=== PATIENT | male | born 1975 | race Caucasian/White ===

== ENCOUNTER → 2019-03-13 | Outpatient (CLI) | payer BC ==
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
== END | disposition home or self-care (01) ==
LOC: RADXRYALE 14:02
PROVIDERS: ATTEND Internal Medicine
DX: M25.521 Pain in right elbow (principal)

== ENCOUNTER → 2020-03-07 | Outpatient (CLI) | payer BC ==
--- NOTE | 2020-03-07 12:59 | MR ---
EXAMINATION TYPE: MR shoulder LT wo con DATE OF EXAM: 03/07/2020 COMPARISON: Radiograph 02/09/2020 HISTORY: 45-year-old male Left shoulder pain TECHNIQUE: Multiplanar, multisequence imaging of the left shoulder is performed without contrast. FINDINGS: The exam is degraded by patient motion especially on the coronal and sagittal T2 FS sequences. Limited assessment of the intracapsular portion of the long head biceps tendon. Slight medial subluxa tion of the tendon in the upper bicipital groove secondary to interstitial tearing of the subscapular is tendon. The majority of the subscapularis tendon appears intact. Severe degenerative change with joint space narrowing, marginal spurring, capsular hypertrophy at the clavicular joint. Anterior spurring just touches the myotendinous junction of the supraspinatus with out any significant mass effect. There is a small effusion within the subacromial/subdeltoid bursa. Diffuse heterogeneity of both supraspinatus and infraspinatus tendons. There is a significant tear me asuring 1 cm long and 1.4 cm AP involving the anterior to mid supraspinatus tendon. Most of this port ion of the tendon appears torn. A few scattered fibers may remain intact. No discrete tear of the infraspinatus tendon. No atrophy of the rotator cuff musculature. No glenohumeral joint effusion. There is suggestion of mild diffuse thinning of the glenohumeral join t articular cartilage. No discrete labral tear given nonarthrographic technique. No para labral cyst. No Hill-Sachs deformity or os acromiale. Patchy red marrow is present and can be seen in the setting of anemia, obesity, smoking, chronic dise ase. IMPRESSION: 1. Diffuse rotator cuff tendinosis. There is a full-thickness tear of the anterior to mid supraspinat us tendon measuring 1 cm long and 1.4 cm AP. Minimal scattered bursal and articular sided fibers may remain intact within the tear. No rotator cuff muscle atrophy. 2. Some attritional tearing of the subscapularis tendon. The majority of the subscapularis tendon rem ains intact. 3. Moderate to severe AC joint OA. There may be mild generalized articular cartilage thinning in the glenohumeral joint. Assessment is limited due to motion degradation.
== END | disposition home or self-care (01) ==
LOC: RADMRIMAIN 11:14
PROVIDERS: ATTEND Orthopaedic Surgery
DX: M19.012 Primary osteoarthritis, left shoulder (principal); M75.102 Unspecified rotator cuff tear or rupture of left shoulder, not specified as traumatic

== ENCOUNTER → 2020-03-23 | Outpatient (CLI) | payer BC | END | disposition home or self-care (01) | LOC: LABWHC1 16:08 | PROVIDERS: ATTEND Nurse Practitioner Gerontology | DX: R05 Cough (principal) | CPT/HCPCS: U0003; C9803 ==

== ENCOUNTER 2020-04-11 08:16 | Day surgery (SDC) | payer BC ==
[2020-04-08 11:46] VITALS: BMI 29.0
--- NOTE | 2020-04-10 16:04 | HP ---
HISTORY AND PHYSICAL REASON FOR ADMISSION: Surgery 04/11/2020 HISTORY OF PRESENT ILLNESS: Kevin Hawkins is a 45-year-old gentleman seen with progressive left shoulder pain. We discussed options for treatment. He elected to proceed with arthroscopy. Consent regarding the procedure was obtained. PAST MEDICAL HISTORY: Gastroesophageal reflux disease. PAST SURGICAL HISTORY: Right shoulder arthroscopy. MEDICATIONS: Omeprazole, tramadol. ALLERGIES: None. SOCIAL HISTORY: Denies tobacco use. PHYSICAL EVALUATION OF THE LEFT SHOULDER: Flexion is 100 degrees, abduction is 90 degrees, external rotation 60 degrees with weakness. There is tenderness along the anterolateral acromion rotator cuff insertion site. Impingement positive at 90. Drop-arm positive. Distal neurovascular exam intact. RADIOGRAPHS: Radiographs of the left shoulder revealed a type 2 anterior acromion, acromioclavicular joint osteoarthritis and cystic changes of the greater tuberosity. Left shoulder MRI revealed rotator cuff tendon tear and AC joint osteoarthritis. IMPRESSION: 1. Left shoulder impingement with rotator cuff tear. 2. Left shoulder acromioclavicular joint osteoarthritis. 3. Chronic opioid use. PLAN: Left shoulder arthroscopy, subacromial decompression, arthroscopic rotator cuff repair, Lore procedure and debridement. Surgery 04/11/2020. MMODL / IJN: [id number] /
[~2020-04-11 08:16] MED LIST: DEXAMETHASONE SOD PHOSPHATE 4 MG/ML 1 ML VIAL IV ONE; LIDOCAINE 1% (10MG/ML) FOR IV START INTRADERMA PRN; MIDAZOLAM 2 MG/2 ML VIAL IV PRN; ONDANSETRON 4 MG/2 ML VIAL IVP ONE
[2020-04-11] MEDS: LACTATED RINGERS 1,000 ML IV SCH ×2 (08:55→10:02)
[2020-04-11 09:03] LABS: Basophils # (A) 0.1 k/uL (0-0.2); Basophils % (A) 1 %; Eosinophils # (A) 0.2 k/uL (0-0.7); Eosinophils % (A) 2 %; HCT 49.2 % (39.0-53.0); HGB 17.2 gm/dL (13.0-17.5); Lymphocytes # (A) 2.1 k/uL (1.0-4.8); Lymphocytes % (A) 24 %; MCH 30.9 pg (25.0-35.0); MCV 88.1 fL (80.0-100.0); Mean Platelet Volume 6.8; Monocytes # (A) 0.4 k/uL (0-1.0); Monocytes % (A) 5 %; Neutrophils % (A) 67 %; Platelet Count 310 k/uL (150-450); RBC 5.58 m/uL (4.30-5.90); RDW 12.6 % (11.5-15.5); WBC 8.9 k/uL (3.8-10.6)
[2020-04-11 09:11] LABS: Potassium 4.3 mmol/L (3.5-5.1)
[2020-04-11] MEDS ORDERED: SUCCINYLCHOLINE CHLORIDE 100 MG/5 ML SYR IV ONE (09:58)
[2020-04-11] MEDS ORDERED: HYDROmorphone (PF) 1 MG/ML ONE (09:58)
[2020-04-11] MEDS ORDERED: GLYCOPYRROLATE 0.2 MG/ML 2 ML VIAL ONE (09:58)
[2020-04-11] MEDS ORDERED: MIDAZOLAM 2 MG/2 ML VIAL ONE (09:58)
[2020-04-11] MEDS ORDERED: PROPOFOL 10 MG/ML 20 ML VIAL IV ONE (09:58)
[2020-04-11] MEDS ORDERED: LIDOCAINE 1% INJ 10MG/ML (20 ML MDV) ONE (09:58)
[2020-04-11] MEDS ORDERED: fentaNYL (PF) 50 MCG/ML 2 ML AMP ONE (09:58)
[2020-04-11] MEDS ORDERED: NEOSTIGMINE 1 MG/ML 10 ML VIAL ONE (09:58)
[2020-04-11] MEDS ORDERED: ROCURONIUM 10 MG/ML (10 ML VIAL) IV ONE (09:58)
--- NOTE | 2020-04-11 11:38 | P.OP ---
Date of Procedure: 04/11/20 Preoperative Diagnosis: Left shoulder impingement Postoperative Diagnosis: 1. Left shoulder rotator cuff tear 2. Left shoulder impingement 3. Left shoulder acromioclavicular joint osteoarthritis 4. Left shoulder partial long head biceps tendon tear 5. Left shoulder superficial labral tear Procedure(s) Performed: 1. Left shoulder arthroscopic rotator cuff repair 2. Left shoulder arthroscopic subacromial decompression 3. Left shoulder arthroscopic Lore procedure 4. Left shoulder arthroscopic biceps tenotomy 5. Left shoulder arthroscopic debridement labral tear Implants: 14.75 Arthrex swivel lock anchor Anesthesia: PRAVEENA Surgeon: Basil Phan Electronic Musical Instrument Repairer #1: Obie Nguyễn Estimated Blood Loss (ml): 8 Pathology: none sent Condition: stable Disposition: PACU Indications for Procedure: 45-year-old patient seen with progressive left shoulder pain. After treatment options were discussed, he elected to proceed with arthroscopy. Operative Findings: See description of procedure Description of Procedure: Patient underwent an interscalene block by department of anesthesia. The patient was then taken to the operative suite. The patient underwent a general anesthetic by the department of anesthesia. The patient was placed into a lateral position and secured. There was appropriate padding of the bony prominence. Left shoulder was then prepped and draped in normal sterile orthopedic fashion. We placed the extremity in 10 pounds of longitudinal traction. A posterior incision was now made for a posterior working portal site. The trocar and cannula were inserted into the glenohumeral joint. Arthroscopy was initiated. Spinal needle was now inserted anteriorly, to ascertain the anterior working portal site. An incision was now made in that area, a trocar was inserted followed by a probe. There was some superficial tearing of the anterior labrum. There was some partial tearing long head biceps tendon. There was no significant chondromalacia present. I performed an arthroscopic biceps tenotomy. I debrided the superficial labral tear. The residual labrum was probed and found to be stable. Instruments now removed from the glenohumeral joint. Utilizing the posterior working portal site, the trocar and cannula were inserted into the subacromial space. Arthroscopy initiated. I made an incision 2 fingerbreadths lateral to the acromion. I introduced my trocar followed by my ArthroCare ablator. I now began ablating thick subacromial bursal tissue, which exposed the undersurface of the anterior acromion. There was diminished subacromial space. There was a very prominent anterior acromion. A motorized bur was introduced and a subacromial decompression was performed. I also excised some osteophytes off the inferior aspect of the distal clavicle. The AC joint was visualized and noted to be fairly arthritic. The motorized bur was introduced in the anterior portal site and a Lore procedure was performed without difficulty, decompressing the AC joint nicely. I turned my attention to the rotator cuff. There was a 11.5 cm rotator cuff tear. I debrided the margins getting down to stable tendon tissue. I abraded the footprint with a motorized bur. With the assistance of Mendoza MIXON I passed 3 everted mattress sutures through good bites of rotator cuff tendon. I punched the hole in the footprint for insertion of an anchor. All 6 limbs of suture were passed through the eyelet of a 4.75 Arthrex swivel lock anchor. The eyelet was placed into the pre-punched hole. I held in position while Mendoza MIXON tensioned all 6 suture limbs and then deployed the anchor with good fixation noted. All residual suture limbs were now clipped. We had good compression of the tendon along the entire footprint. I injected 1 mL Renyte intra-articular. Instruments now removed from the portal sites. All portal sites were approximated with nylon suture. Sterile dressings were applied followed by a shoulder sling. Obie MIXON assisted in this complex case. The patient was awakened, transferred to a bed, and taken to recovery in stable condition.
[2020-04-11 11:54] VITALS: RESP 16; TEMP 98.2
[2020-04-11] MEDS: HYDROmorphone 0.5 MG/0.5 ML SYRINGE IVP PRN ×3 (12:05→12:30)
[2020-04-11] MEDS ORDERED: KETOROLAC 15 MG/ML 1 ML VIAL IVP ONE (12:32)
[2020-04-11] MEDS ORDERED: LACTATED RINGERS 1,000 ML IV ONE (12:35)
[2020-04-11] MEDS ORDERED: HYDROcodone/APAP 10-325MG 1 EACH TAB ONE (13:01)
[2020-04-11] MEDS ORDERED: HYDROcodone/APAP 10-325MG 1 EACH TAB PO ONE (13:02)
[2020-04-11] MEDS ORDERED: ONDANSETRON 4 MG/2 ML VIAL ONE (14:21)
[2020-04-11] MEDS ORDERED: ONDANSETRON 4 MG/2 ML VIAL IVP ONE (14:30)
[2020-04-11 14:51] VITALS: BP 114/70; PULSE 65
== END 2020-04-11 15:22 | disposition home or self-care (01) ==
LOC: OR 08:16
PROVIDERS: ATTEND Orthopaedic Surgery
DX: M75.102 Unspecified rotator cuff tear or rupture of left shoulder, not specified as traumatic (principal); M75.42 Impingement syndrome of left shoulder; M19.012 Primary osteoarthritis, left shoulder; K21.9 Gastro-esophageal reflux disease without esophagitis; Z79.891 Long term (current) use of opiate analgesic; Z79.899 Other long term (current) drug therapy; S43.432A Superior glenoid labrum lesion of left shoulder, initial encounter; S46.112A Strain of muscle, fascia and tendon of long head of biceps, left arm, initial encounter; M25.712 Osteophyte, left shoulder
CPT/HCPCS: 80051; 85025; 29827; 29824; 29826; C1713; J2250; J1100; J2710; J0690; J2405; J2001; J3010; J1170 ×2; J1885; J0330; J2704

== ENCOUNTER → 2022-10-15 | Outpatient (CLI) | payer OTHER ==
--- NOTE | 2022-10-16 10:01 | MR ---
MRI CERVICAL SPINE: CLINICAL HISTORY: Headaches with Neck pain that radiates down bilateral arms for 15 years. Spondylosi s with radiculopathy per order. TECHNIQUE: Multiplanar, multisequence imaging of the cervical spine is performed without IV contrast. COMPARISON: Outside cervical spine x-ray September 03, 2022 FINDINGS: Sagittal images of the cervical spine show the craniocervical junction to appear within nor mal limits. The cervical and upper thoracic spinal cord is normal in course, caliber, and signal. V ertebral alignment is anatomic. Mild disc space narrowing C6-C7 level otherwise vertebral body height s and disc space heights are preserved.. The bone marrow signal intensity is within normal limits. Axial images show C2-C3 level to appear within normal limits. Axial images at C3-C4 level show tiny central disc protrusion mildly effaces the anterior thecal sac, patent bilateral neural foramina. Axial images at C4-C5 level shows tiny central disc protrusion mildly effacing the anterior thecal sa c with uncovertebral facet degenerative change causing mild left-sided neural foraminal narrowing. Axial images at C5-C6 levels show broad-based posterior disc protrusion effaces the anterior thecal s ac with uncovertebral facet degenerative change causing mild to moderate right greater than left bila teral neural foraminal narrowing. Axial images at C6-C7 level show focal left paracentral disc protrusion minimally effacing anterior t hecal sac. Patent bilateral neural foramina. Axial images at C7-T1 level appear within normal limits. IMPRESSION: Multilevel degenerative change in the cervical spine as detailed above.
== END | disposition home or self-care (01) ==
LOC: RADMRIMAIN 15:56
PROVIDERS: ATTEND Nurse Practitioner Family
DX: M47.812 Spondylosis without myelopathy or radiculopathy, cervical region (principal); M50.31 Other cervical disc degeneration, high cervical region
CPT/HCPCS: 72141

== ENCOUNTER → 2023-01-14 | Outpatient (CLI) | payer BC, OTHER ==
[2023-01-14 11:37] VITALS: BP 139/90; PULSE 58; RESP 16; TEMP 98
--- NOTE | 2023-01-14 14:15 | P.PAINPG ---
PQRS Measure Charge Sheet Comment: HISTORY OF PRESENT ILLNESS: 48 yr old male as a referral from Dr Kern presents today w severe and chronic neck pain x < 1yr secondary to DDD, spondylosis and facet arthropathy without myelopathy for evaluation. Pt states pain level is provoked at 9 /10 in intensity, constant, localized in the lower cervical spine, burning in character w shooting pain towards the mid shoulders. Pain is provoked by lifting or laying supine. Pain is alleviated by medications (Neurontin, Mobic), massage therapy weekly from May - Nov 2022, chiropractic treatments weekly from May - Nov 2022, heat, ice without rleief, repositioning and rest. Oswestry axial pain score at 21 . PMH: OA PSH: L RCT Repair (2019), R shoulder surgery SH: Negative x3 FH: Non contributory All: See list Meds: See list REVIEW OF ORGAN SYSTEMS: CONSTITUTIONAL: No fevers or chills. No recent weight loss. NEUROLOGICAL: + numbness and tingling along the distal extremities. No seizure disorders or headaches. MUSCULOSKELETAL: + pain PSYCHIATRIC: Denies current depression or suicidal thoughts. Physical Examinations : Constitutional : Cooperative , not in acute distress . Neurologic : Cranial nerve II to XII intact. No focal neurological deficits. Psychiatric : alert & oriented x 3. Matching mood & appropriate affect. Judgment & insight intact. Musculoskeletal : Cervical Spine Motor strength in the deltoid and biceps: Normal right side. Normal Left side Motor strength biceps and the wrist extensors: Normal right side . Normal left side Motor strength in the triceps muscle: Normal right side. Normal left side Deep tendon reflexes: Normal at the biceps. Normal at Brachioradialis. Normal at triceps Vertebral body tenderness to deep palpation over C6 Cervical facet loading test: positive bilaterally Spurling test: positive over L C6-C7 Neck distraction test: positive bilaterally Marsha sign: positive bilaterally Lumbar spine Motor strength lower extremities ,thigh and legs 5/5 Right side , 5/5 Left side Deep tendon reflexes : Normal Knee Jerk. Normal Ankle Jerk Vertebral body tenderness over Muniz Test positive Lumbar facet Loading Test: positive Right / positive Left Range of motion of the lumbar spine Flexion 30 degrees, extension 10 degrees Straight Leg Raise test: Left/ Right positive at degree Arelis test: positive right / positive left. Severe tenderness over the Sacroiliac joint on the Right / Left sides Gaenslen test: positive bilaterally Seated flexion test: positive bilaterally. Sacral spine : Severe tenderness over the Sacroiliac joint: right side / left side Range of motion: Flexion of the lumbar spine <60 degrees Range of motion: Extension of the lumbar spine <20 degrees Gaenslen's Test positive Cale's Test positive Arelis test: positive right side / left side Thigh Thrust Test Sacral Thrust Test Imaging: MRI without contrast of the cervical spine from 10/15/22 reviewed Assessment/ Plan : Cervical DDD Recommendation of KASSI C6-C7 #1. May need a series of injections for optimal pain relief. Risks, benefits of procedure discussed and patient verbalized understanding. Admits to aspirin or anti- coagulant use or medical history of diabetes. Protocol for discontinuation/ continuation of medications selin procedure discussed. Minimal anesthesia provided, if clinically indicated, consisting of Versed and Fentanyl. All questions answered. I have spent greater than 30 minutes on patient care today. Dr Collier was available by phone for the evaluation of this patient. The time was used to review the medical records including relevant urine studies and Prescription history (MAPs), review of the available imaging, evaluation and examination of the patient, coordination of care with the medical staff and if applicable referring physicians, as well as creation of the medical record Home Medications: Ambulatory Orders Aspirin 81 mg PO DAILY 04/08/20 Sertraline [Zoloft] 25 mg PO DAILY 04/08/20 traMADol HCL [Ultram] 50 mg PO Q6HR PRN 04/08/20 Gabapentin [Neurontin] 100 mg PO DAILY 04/11/20 Hydrocodone/Acetaminophen [[place] 10-325] 1 each PO Q6H PRN #28 tab 04/11/20 Meloxicam [Mobic] 1 tab PO DAILY 04/11/20 Controlled Substance Measures - Controlled Substance Measures Is patient prescribed a controlled substance at discharge?: No
== END ==
LOC: PNWHC3 09:51
PROVIDERS: ATTEND Specialist
DX: M50.123 Cervical disc disorder at C6-C7 level with radiculopathy (principal); M47.22 Other spondylosis with radiculopathy, cervical region; Z79.82 Long term (current) use of aspirin; M19.90 Unspecified osteoarthritis, unspecified site
CPT/HCPCS: 99211

== ENCOUNTER 2023-02-05 08:48 | Day surgery (SDC) | payer BC, OTHER ==
[2023-02-05 09:13] VITALS: TEMP 97.1
[2023-02-05] MEDS ORDERED: DEXAMETHASONE SOD PHOSPHATE 10 MG/ML 1 ML VIAL ONE (09:51)
[2023-02-05] MEDS ORDERED: IOPAMIDOL M200 10 ML VIAL ONE (09:51)
--- NOTE | 2023-02-05 09:59 | P.PCN ---
Date of Procedure: 02/05/23 Procedure(s) Performed: . PROCEDURE 1. Cervical epidural steroid injection under fluoroscopic guidance, C6-7 (fluoroscopy images available in the radiology department ) 2. Cervical epidurogram. PREOPERATIVE DIAGNOSIS: 1- Cervical Degenerative Disc Diseases 2- Cervical radiculopathy. POSTOPERATIVE DIAGNOSIS: : 1- Cervical Degenerative Disc Diseases , 2- Cervical radiculopathy. ANESTHESIA: Local anesthesia with lidocaine 1% 3 ml only EBL 0 PROCEDURE INDICATION: The patient with neck pain and radiculitis unresponsive to conservative treatment consents for procedure. PROCEDURE DESCRIPTION / TECHNIQUE: The patient was seen and identified in the preoperative area. Risks, benefits, complications, including but not limited to infections ,bleeding , allergic reactions to the medications ,and not complete pain releife, and alternatives were discussed with the patient, the patient agreed to proceed with the procedure and signed the consent. Patient was taken to the OR and time out was completed. The patient was placed in the prone position on the procedure table. A pillow was placed under the patients chest to increase the cervical interlaminar space. The cervical area was prepped and draped in the usual sterile fashion. Vital signs were closely monitored during the procedure. Using anterior-posterior fluoroscopy, the C6-7 interlaminar space was identified and the skin over this site was marked and then infiltrated with 1% lidocaine subcutaneously. Subsequently, a 20-gauge 3-1/2-inch Tuohy epidural needle was inserted and advanced toward the epidural space by means of the ``hanging-drop technique and guided by AP and lateral fluoroscopy. The correct needle position in the epidural space was verified with the injection of 2 mL of the water soluble contrast dye [id number]-200 and observing an excellent epidurogram with the epidural spread of the dye, after negative aspiration for blood and CSF and in the absence of paresthesias. then, mixture containing 20 mg Dexamethasone and 2 ml of preservative-free normal saline injected and a washout of epidurogram was seen. Needle was withdrawn intact, skin was cleansed, and bandages were applied. Complications= none. Disposition= patient was placed in supine position and transferred to the recovery room area in stable condition and there was no evidence of upper or lower extremity motor or sensory deficit after the procedure patient was discharged from recovery room after discharge criteria met and home discharge instructions was given by the staff and patient will follow with the pain clinic in 2-4 weeks
[2023-02-05 10:29] VITALS: BP 119/77; PULSE 59; RESP 16
--- NOTE | 2023-02-05 11:23 | FL ---
Fluoroscopy History: [facility] [place] TIME 4 SECS DAP [id number]
== END 2023-02-05 10:31 | disposition home or self-care (01) ==
LOC: ORPAIN 08:48
PROVIDERS: ATTEND Specialist
DX: M50.123 Cervical disc disorder at C6-C7 level with radiculopathy (principal); M47.22 Other spondylosis with radiculopathy, cervical region; Z79.82 Long term (current) use of aspirin
CPT/HCPCS: 62321; J1100; Q9966

== ENCOUNTER → 2023-03-21 | Outpatient (CLI) | payer BC, OTHER ==
[2023-03-21 13:37] VITALS: BP 125/82; PULSE 76; RESP 15; TEMP 97.8
--- NOTE | 2023-03-21 13:52 | P.PAINPG ---
PQRS Measure Charge Sheet Comment: HISTORY OF PRESENT ILLNESS: 48 yr old male presents today w severe and chronic neck pain x 10 yrs secondary to DDD, spondylosis and facet arthropathy without myelopathy for evaluation s/p KASSI C6-C7 #1. Pt states he experienced 80% pain relief x 1 wk s/p procedure. Pt states pain level is provoked at 7 /10 in intensity, constant, localized in the lower cervical spine, burning in character w shooting pain towards the mid shoulders. Pain is provoked by lifting or laying supine. Pain is alleviated by medications, PT x 4 wks w last visit 2 wks ago, massage therapy weekly from May -, chiropractic treatments weekly from May - Nov 2022, heat, ice without relief, repositioning and rest. Oswestry axial pain score at 20. Interventional procedures include KASSI C6- C7 x1 Medications include Neurontin, Mobic REVIEW OF ORGAN SYSTEMS: CONSTITUTIONAL: No fevers or chills. No recent weight loss. NEUROLOGICAL: + numbness and tingling along the distal extremities. No seizure disorders or headaches. MUSCULOSKELETAL: + pain PSYCHIATRIC: Denies current depression or suicidal thoughts. Physical Examinations : Constitutional : Cooperative , not in acute distress . Neurologic : Cranial nerve II to XII intact. No focal neurological deficits. Psychiatric : alert & oriented x 3. Matching mood & appropriate affect. Judgment & insight intact. Musculoskeletal : Cervical Spine Motor strength in the deltoid and biceps: Normal right side. Normal Left side Motor strength biceps and the wrist extensors: Normal right side . Normal left side Motor strength in the triceps muscle: Normal right side. Normal left side Deep tendon reflexes: Normal at the biceps. Normal at Brachioradialis. Normal at triceps Vertebral body tenderness to deep palpation over C6 Cervical facet loading test: positive bilaterally over BL C4-C5, C5-C6 Spurling test: positive over L C6-C7 Neck distraction test: positive bilaterally Marsha sign: positive bilaterally Lumbar spine Motor strength lower extremities ,thigh and legs 5/5 Right side , 5/5 Left side Deep tendon reflexes : Normal Knee Jerk. Normal Ankle Jerk Vertebral body tenderness over Muniz Test positive Lumbar facet Loading Test: positive Right / positive Left Range of motion of the lumbar spine Flexion 30 degrees, extension 10 degrees Straight Leg Raise test: Left/ Right positive at degree Arelis test: positive right / positive left. Severe tenderness over the Sacroiliac joint on the Right / Left sides Jessica test: positive bilaterally Seated flexion test: positive bilaterally. Sacral spine : Severe tenderness over the Sacroiliac joint: right side / left side Range of motion: Flexion of the lumbar spine <60 degrees Range of motion: Extension of the lumbar spine <20 degrees Gaenslen's Test positive Cale's Test positive Arelis test: positive right side / left side Thigh Thrust Test Sacral Thrust Test Imaging: MRI without contrast of the cervical spine from 10/15/22 reviewed Assessment/ Plan : Cervical DDD Recommendation of BL MBB C4-C5, C5-C6 #1. May need a series of injections, up until RFA, for optimal pain relief. Risks, benefits of procedure discussed and patient verbalized understanding. Admits to aspirin or anti- coagulant use or medical history of diabetes. Protocol for discontinuation/ continuation of m edications selin procedure discussed. Minimal anesthesia provided, if clinically indicated, consisting of Versed and Fentanyl. All questions answered. I have spent greater than 30 minutes on patient care today. Dr Collier was available by phone for the evaluation of this patient. The time was used to review the medical records including relevant urine studies and Prescription history (MAPs), review of the available imaging, evaluation and examination of the patient, coordination of care with the medical staff and if applicable referring physicians, as well as creation of the medical record PQRS Narrative: Hx Alcohol Use (MH) Yes: rare Home Medications: Ambulatory Orders Aspirin 81 mg PO DAILY 04/08/20 Sertraline [Zoloft] 25 mg PO DAILY 04/08/20 Gabapentin [Neurontin] 100 mg PO DAILY 04/11/20 Meloxicam [Mobic] 1 tab PO DAILY 04/11/20 Controlled Substance Measures - Controlled Substance Measures Is patient prescribed a controlled substance at discharge?: No
== END ==
LOC: PNWHC3 13:06
PROVIDERS: ATTEND Specialist
DX: M50.321 Other cervical disc degeneration at C4-C5 level (principal); M50.322 Other cervical disc degeneration at C5-C6 level; Z79.82 Long term (current) use of aspirin
CPT/HCPCS: 99211

== ENCOUNTER 2023-04-12 10:13 | Day surgery (SDC) | payer BC, OTHER ==
[2023-04-12] MEDS ORDERED: LACTATED RINGERS 1,000 ML IV SCH (10:22)
[2023-04-12] MEDS ORDERED: LACTATED RINGERS 1,000 ML IV ONE ×2 (10:23→12:25)
[2023-04-12 10:55] VITALS: TEMP 98
[2023-04-12] MEDS ORDERED: fentaNYL (PF) 50 MCG/ML 2 ML AMP ONE (11:54)
[2023-04-12] MEDS ORDERED: MIDAZOLAM 2 MG/2 ML VIAL ONE (11:54)
[2023-04-12] MEDS ORDERED: ROPIVACAINE 5MG/ML 20ML VIAL ONE (11:58)
[2023-04-12] MEDS ORDERED: methylPREDNISolone ACETATE 40 MG/ML 1 ML VIAL ONE (11:58)
--- NOTE | 2023-04-12 12:24 | P.PCN ---
Date of Procedure: 04/12/23 Procedure(s) Performed: PREOPERATIVE DIAGNOSIS: 1-Cervical Spondylosis with Facet Arthropathy.without myelopathy. 2-cervical degenerative disc disease POSTOPERATIVE DIAGNOSIS:1-cervical spondylosis with facet arthropathy without myelopathy. 2-cervical degenerative disc disease PROCEDURES: Diagnostic bilateral C4 , C5 , and C6 medial branch blocks, with fluoroscopic guidance (fluoroscopy images available in radiology department ) ( to target the facet joint at bilateral C4- 5 , C5- 6 )# 1ST ANESTHESIA: Monitored anesthesia care as per anesthesia department EBL: Minimal PROCEDURE INDICATION: The patient with neck pain secondary to cervical arthropathy unresponsive to more conservative treatments. PROCEDURE DESCRIPTION / TECHNIQUE: The patient was seen and identified in the preoperative area. Risks, benefits, complications, and alternatives were discussed with the patient, the patient agreed to proceed with the procedure and signed the consent. IV was started. Vital signs remained stable throughout the procedure. Patient was taken to the OR and time out was completed. The patient was placed in the (Lateral )position on the procedure table. The cervical area was prepped and draped in the usual sterile fashion. Critical pause was taken. Vital signs were closely monitored during the procedure. Conscious sedation was used during the procedure to decrease patients anxiety. Using cross-table lateral fluoroscopy, the centroid of the trapezoid of right C4 , C5 and C6, was identified, marked, and localized with 1% lidocaine 1 ml at each level for skin and Sub Q infiltrations . Subsequently, a 22 G 3 spinal needle was advanced guided by fluoroscopy to the centroid of the trapezoid of Right C4 , C5, C6 . [place] tip position was confirmed at the centroid of the trapezoids of Right C4 , C5 ,C6 with anteroposterior fluoroscopy. Subsequently, 2 ml of preservative-free Ropivacaine 0.5% mixed with Depo- Medrol 20 mg and half ml of the mixture was injected after negative aspiration for blood and CSF. [place] was then removed intact the same procedure was repeated at the left C4 , C5 , and C6 levels. COMPLICATIONS: No acute complications. COMMENTS:( when patient placed in prone position ,we were not able to visualize C5 and C6 vertebra for this reason procedure was done in the lateral position ) DISPOSITION / PLANS: The patient was placed in a supine position and transferred to the recovery area in a stable condition for observation and was discharged from the recovery room after meeting discharge criteria. Home discharge instructions given to the patient by the staff. The patient was reexamined prior to discharge. The patient will schedule a follow up in the clinic in 2-4 weeks.
[2023-04-12 12:42] VITALS: BP 137/78; PULSE 68; RESP 20
--- NOTE | 2023-04-12 14:38 | FL ---
Intraoperative/procedural fluoroscopic services were provided. Total fluoroscopy time is 25.3 seconds with a total of 5 submitted images to PACS. Please see the operative/procedural note for further det ails. DAP: [id number] [id number]
== END 2023-04-12 12:55 | disposition home or self-care (01) ==
LOC: ORPAIN 10:13
PROVIDERS: ATTEND Specialist
DX: M47.812 Spondylosis without myelopathy or radiculopathy, cervical region (principal); M50.322 Other cervical disc degeneration at C5-C6 level
CPT/HCPCS: 64490; 64491 ×2; J2250; J1030; J3010; J2795

== ENCOUNTER → 2024-09-24 | Outpatient (CLI) | payer BC, OTHER ==
--- NOTE | 2024-09-24 10:37 | XR ---
EXAMINATION TYPE: XR abdomen 1V DATE OF EXAM: 09/24/2024 10:33 AM COMPARISON: None. CLINICAL INDICATION: Male, 49 years old with history of R19.8 OTH SYMPTOMS AND SIGNS INVOLVING THE DG STV S, TECHNIQUE: Single view of the abdomen. FINDINGS: Small bowel demonstrates no evidence for dilatation or air fluid levels. Gas and fecal material is seen in non-distended colon. No convincing evidence for pneumoperitoneum. No unusual calcifications. The lung bases are clear. The osseous structures are intact. IMPRESSION: 1. Moderate fecal stasis. [facility], , 09/24/2024 10:35 AM
[2024-09-24 15:39] LABS: Basophils # (A) 0.08 X 10*3/uL (0.00-0.10); Basophils % (A) 0.7 %; Eosinophils % (A) 1.9 %; HCT 51.3 % (39.6-50.0); HGB 17.7 g/dL (13.0-17.0); Lymphocytes # (A) 2.71 X 10*3/uL (0.90-5.00); Lymphocytes % (A) 25.3 %; MCH 30.2 pg (27.0-32.0); MCHC 34.5 g/dL (32.0-37.0); MCV 87.5 FL (80.0-97.0); Mean Platelet Volume 9.6 FL (9.5-12.2); Monocytes # (A) 0.83 X 10*3/uL (0.20-1.00); Monocytes % (A) 7.7 %; NRBC Per 100 WBC 0 X 10*3/uL (0.00-0.01); Neutrophils # (A) 6.87 X 10*3/uL (1.80-7.70); Platelet Count 321 X 10*3/uL (140-440); RBC 5.86 X 10*6/uL (4.40-5.60); RDW 12.2 % (11.5-14.5); WBC 10.73 X 10*3/uL (4.50-10.00)
== END | disposition home or self-care (01) ==
LOC: RADXRMAIN 10:07
PROVIDERS: ATTEND Internal Medicine Gastroenterology
DX: K56.41 Fecal impaction (principal); R19.8 Other specified symptoms and signs involving the digestive system and abdomen
CPT/HCPCS: 74018; 85025

== ENCOUNTER 2024-11-13 08:40 | Day surgery (SDC) | payer BC, OTHER ==
[2024-11-11 15:55] VITALS: BMI 32.3
[2024-11-13 09:05] VITALS: TEMP 97.1
[2024-11-13] MEDS: IV FLUID CONTINUATION 1,000 ML IV ONE ×2 (09:12→09:51)
[2024-11-13] MEDS: LACTATED RINGERS 1,000 ML IV SCH (09:13)
[2024-11-13] MEDS ORDERED: LIDOCAINE 2% (PF) 20 MG/ML 5 ML VIAL ONE (09:52)
[2024-11-13] MEDS ORDERED: PROPOFOL 10 MG/ML 20 ML VIAL IV ONE (09:52)
--- NOTE | 2024-11-13 10:11 | P.PCN ---
Date of Procedure: 11/13/24 Procedure(s) Performed: Brief history: Patient is a pleasant 49-year-old white male scheduled for an elective upper endoscopy as well as colonoscopy as a part of evaluation of longstanding history of GERD, intermittent lower abdominal pain and change in bowel habits for the last 2 months duration. He has history of complicated diverticular disease for which he underwent sigmoid colectomy in 2021 with colostomy followed by reversal. Procedure performed: Esophagogastroduodenoscopy with biopsy Colonoscopy with biopsy Preoperative diagnosis: Longstanding history of GERD Abdominal pain and change in bowel habits Anesthesia: MAC Procedure: After informed consent was obtained from the patient was brought into the endoscopy unit and IV sedation was administered by anesthesia under continuous monitoring. Initially upper endoscopy was done. The Olympus GF 160 video endoscope was inserted inserted into the mouth and esophagus intubated without any difficulty and was gradually advanced into the stomach and duodenum and carefully examined. The bulb and second part of the duodenum appeared normal. The scope was then withdrawn into the stomach adequately insufflated with air and upon careful examination the antrum had patchy areas of erythema consistent with gastritis and biopsies were done from this area. Body, cardia and fundus appeared normal. The scope was then withdrawn into the esophagus. Small hiatal hernia noted. The GE junction was located at 40 cm to the incisors. It regis eared regular with linear erosions consistent with LA grade B reflux esophagitis. Rest of the esophagus appeared normal. Patient tolerated the procedure well. At this time the patient continued to remain sedation. Initial digital rectal examination was normal. Olympus CF 160 video colonoscope was then inserted into the rectum and gradually advanced to the cecum without any difficulty. Careful examination was performed as the scope was gradually being withdrawn. The prep was excellent. The cecum, ascending colon, transverse colon, descending colon, appeared normal. Anastomosis from previous sigmoid colectomy was located 20 cm from the anal verge where there was a 3 mm polyp identified which was removed by cold biopsy. Rectum appeared normal. Retroflexion was performed in the rectum and no lesions were noted. Patient tolerated the procedure well. Impression: 1. Upper endoscopy revealed mild antral gastritis, small hiatal hernia and linear erosions in the distal esophagus consistent with LA grade B reflux esophagitis. 2. Colonoscopy revealed Scattered left-sided diverticulosis 3 mm polyp in the sigmoid anastomosis at 20 cm from the anal verge status post biopsy Widely patent sigmoid anastomosis with no evidence of stricture. Recommendations: Findings of this examination were discussed with the patient as well as his family. He was advised to continue with lansoprazole 30 mg daily and follow antireflux measures. If the biopsy reveals adenoma, recommended repeat colonoscopy in 5 to 7 years. In the meantime continue with a high-fiber diet and take fiber supplements on a regular basis and avoid straining and constipation.
[2024-11-13 10:41] VITALS: BP 107/83; PULSE 66; RESP 16
== END 2024-11-13 11:03 | disposition home or self-care (01) ==
LOC: ORWHC2ENDO 08:40
PROVIDERS: ATTEND Internal Medicine Gastroenterology
DX: K29.50 Unspecified chronic gastritis without bleeding (principal); K63.5 Polyp of colon; K44.9 Diaphragmatic hernia without obstruction or gangrene; K21.9 Gastro-esophageal reflux disease without esophagitis; K57.30 Diverticulosis of large intestine without perforation or abscess without bleeding; E78.5 Hyperlipidemia, unspecified; F32.A Depression, unspecified; Z89.231 Acquired absence of right shoulder; Z93.3 Colostomy status; Z88.5 Allergy status to narcotic agent; Z79.02 Long term (current) use of antithrombotics/antiplatelets; Z79.899 Other long term (current) drug therapy
CPT/HCPCS: 88305; 45380; 43239; J2704; J2003